=== PATIENT | female | born 1985 | race Caucasian/White ===

== ENCOUNTER 2024-08-14 13:22 | Outpatient (CLI) | payer MEDICARE, MEDICAID, SELFPAY ==
--- NOTE | ~2024-08-14 | MR_ITS ---
EXAMINATION: MR brain/brain stem wo/w con DATE: 08/14/2024 14:22 INDICATION: Unspecified convulsions. TECHNIQUE: Magnetic resonance imaging (MRI) of the brain and brainstem was performed without and with 19 mL MultiHance intravenous contrast. COMPARISON: None. FINDINGS: There is chronic encephalomalacia in left frontal lobe. There is no intracranial hemorrhage , acute infarction, or abnormal intracranial mass lesion. The ventricles are normal in size. There is ex vacuo dilatation of frontal horn of left lateral ventricle. There is mild mucosal thickening in t he ethmoid sinuses. The orbits are normal. The mastoid air cells are normal. IMPRESSION: 1. Chronic encephalomalacia in left frontal lobe. Reviewed, dictated and finalized at location A.
== END 2024-08-14 13:23 | disposition home or self-care (01) ==
PROVIDERS: Visit Provider Psychiatry & Neurology Neurology
DX: R56.9 Unspecified convulsions (principal)
CPT/HCPCS: 70553; A9577

== ENCOUNTER 2025-05-25 10:40 | Outpatient (CLI) | payer MEDICARE, MEDICAID, SELFPAY ==
--- NOTE | 2025-05-26 10:30 | WPDNEUROLOGY ---
Neurology EEG Report General Information Date of Study: 05/25/25 TEST EEG DIAGNOSIS Possible seizure disorder. CONDITION OF RECORDING Awake, drowsy. EEG NUMBER 25 Routine 126 CLINICAL HISTORY History was provided by the caregiver. No documented seizures noted in 2024 beside possible seizure about 1 week ago. Patient reportedly has no aura .During the spells ,patient begins shaking her arms and curls up and shakes all over also she cries out and at times picks on her clothes . The whole episode lasts about one to one and half minute. If the patient is standing ,she will fall down and for that reason she wears a helmet. Reportedly, post ictally, she is disoriented and is not verbal right away also feels exhausted. EEG DESCRIPTION The whole tracing has poor background rhythm admixed with multiple muscle artifacts and movement artifacts superimposed on low voltage 15 to 21 hertz per 2nd beta activity and intermittent low to medium voltage theta and delta activity over the left hemisphere. Very small amount of low-voltage 9 to 11 hertz per 2nd alpha seen posteriorly during wakefulness. Hyperventilation produced asymmetrical build up with left posterior theta and delta activity. Focal and lateralized IMPRESSION abnormal record due to the absence of normal background rhythm, presence of left hemispheric focal slow activity particularly during hyper ventilation. 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 Clinical correlation recommended.
== END 2025-05-25 10:41 | disposition home or self-care (01) ==
LOC: ANHNEURO 10:42
PROVIDERS: PCP Family Medicine; Visit Provider Psychiatry & Neurology Neurology
DX: Z87.828 Personal history of other (healed) physical injury and trauma (principal)
CPT/HCPCS: 95816